=== PATIENT | female | born 1980 | race Caucasian/White ===

== ENCOUNTER 2017-08-04 03:28 | Emergency (ER) | payer MEDICAID ==
--- NOTE | 2017-08-04 03:31 | ER Report ---
History and Physical Time Seen By MD: 03:30 (KEIRY TORRES DO) Time Seen By MD: 06:55 (KAYCEE DAMON DO) HPI/ROS CHIEF COMPLAINT: Left flank pain HISTORY OF PRESENT ILLNESS: 36-year-old female presents ambulatory to the ER complaining of urgency throughout the day and then 3 hours of severe left flank pain with severe nausea. Patient states she has history of kidney stones, last one was 2 years ago. Patient notes no hematuria, except when she wipes. There' s staining on the tissue. She states she's not had menstrual periods 3 years. She has an IUD. REVIEW OF SYSTEMS: Respiratory: No cough, no dyspnea. Cardiovascular: No chest pain, no palpitations. Gastrointestinal: As above Musculoskeletal: As above (KEIRY TORRES DO) Allergies: Coded Allergies: No Known Drug Allergies (Unverified , 08/04/17) Home Meds Active Scripts Oxycodone Hcl/Acetaminophen (PERCOCET 5-325 MG TABLET) 1 Each Tablet, 1 EACH PO Q4H Y for PAIN, #12 TAB 0 Refills Prov:KAYCEE DAMON DO 08/04/17 Ondansetron (ZOFRAN ODT) 4 Mg Tab.rapdis, 4 MG PO Q6H Y for NAUSEA/VOMITING, # 20 TAB.JEN 0 Refills Prov:KAYCEE DAMON DO 08/04/17 Reviewed Nurses Notes: Yes Old Medical Records Reviewed: Yes (KEIRY TORRES DO) Constitutional Vital Sign - Last 24 Hours 08/04/17 08/04/17 08/04/17 08/04/17 03:33 03:35 04:43 04:48 Temp 97.6 Pulse 95 97 94 Resp 20 B/P (MAP) 139/100 139/100 (113) Pulse Ox 95 95 93 O2 Delivery Room Air 08/04/17 08/04/17 08/04/17 08/04/17 05:00 05:03 05:18 05:30 Pulse 95 90 B/P (MAP) 120/79 (93) 115/66 (82) Pulse Ox 93 96 08/04/17 08/04/17 08/04/17 08/04/17 05:33 05:38 05:53 06:00 Pulse 84 87 82 B/P (MAP) 103/69 (80) Pulse Ox 92 88 85 08/04/17 08/04/17 08/04/17 06:08 06:23 06:30 Pulse 71 75 B/P (MAP) 98/72 (81) Pulse Ox 95 87 (KAYCEE DAMON DO) Physical Exam General Appearance: The patient is alert, has no immediate need for airway protection and no current signs of toxicity. HEENT: Pupils equal and round no injection. Oropharynx no redness or exudate, mucous members are moist Respiratory: Chest is non tender, lungs are clear to auscultation. Cardiac: regular rate and rhythm Gastrointestinal: Abdomen is soft and non tender, no masses, bowel sounds normal. Mild left CVA tenderness Musculoskeletal: Neck: Neck is supple and non tender. Extremities have full range of motion and are non tender. Skin: No rashes or lesions. DIFFERENTIAL DIAGNOSIS: After history and physical exam differential diagnosis was considered for flank pain including but not limited to musculoskeletal causes, kidney stone, pyelonephritis, shingles, and intra-abdominal causes such as diverticulitis and appendicitis. (KEIRY TORRES DO) Medical Decision Making Data Points Result Diagram: 08/04/17 0546 08/04/17 0546 Laboratory Hematology Test 08/04/17 03:32 08/04/17 05:46 Urine Color Yellow Urine Clarity Slightly-cloudy Urine pH 5.0 pH (4.8-9.5) Urine Specific [place] 1.030 Urine Protein Negative mg/dL (NEGATIVE) Urine Glucose (UA) Negative mg/dL (NEGATIVE) Urine Ketones Negative mg/dL (NEGATIVE) Urine Blood Large (NEGATIVE) Urine Nitrite Negative (NEGATIVE) Urine Bilirubin Negative (NEGATIVE) Urine Urobilinogen 2.0 mg/dL (0.2-1.9) Urine Leukocyte Esterase Negative (NEGATIVE) Urine RBC 257 /HPF (0-2/HPF) Urine WBC 2 /HPF (0-5/HPF) Urine Squamous Epithelial Cells Many /LPF (</=FEW) Urine Transitional Epithelial Cells Few /LPF (NONE-FEW) Urine Bacteria Negative /HPF (NONE-FEW) Urine Mucus Few /HPF (NONE-FEW) Red Blood Count 4.31 M/uL (4.17-5.56) Mean Corpuscular Volume 90.9 fL (80.0-96.0) Mean Corpuscular Hemoglobin 31.6 pg (26.0-33.0) Mean Corpuscular Hemoglobin Concent 34.8 g/dL (32.0-36.0) Red Cell Distribution Width 13.9 % (11.5-14.5) Mean Platelet Volume 8.0 fL (7.2-11.1) Neutrophils (%) (Auto) 53.7 % (39.4-72.5) Lymphocytes (%) (Auto) 37.6 % (17.6-49.6) Monocytes (%) (Auto) 6.5 % (4.1-12.4) Eosinophils (%) (Auto) 1.3 % (0.4-6.7) Basophils (%) (Auto) 0.9 % (0.3-1.4) Nucleated RBC Relative Count (auto) 0.0 /100WBC Neutrophils # (Auto) 4.9 K/uL (2.0-7.4) Lymphocytes # (Auto) 3.4 K/uL (1.3-3.6) Monocytes # (Auto) 0.6 K/uL (0.3-1.0) Eosinophils # (Auto) 0.1 K/uL (0.0-0.5) Basophils # (Auto) 0.1 K/uL (0.0-0.1) Nucleated RBC Absolute Count (auto) 0.00 K/uL Sodium Level 137 mmol/L (137-145) Potassium Level 3.7 mmol/L (3.5-5.0) Chloride Level 107 mmol/L (98-107) Carbon Dioxide Level 21 mmol/L (22-31) Blood Urea Nitrogen 14 mg/dl (7-18) Creatinine 0.60 mg/dl (0.52-1.04) Glomerular Filtration Rate Calc > 60.0 Random Glucose 93 mg/dl (75-110) Calcium Level 8.8 mg/dl (8.4-10.2) Total Bilirubin 0.3 mg/dl (0.2-1.3) Aspartate Amino Transf (AST/SGOT) 13 U/L (0-35) Alanine Aminotransferase (ALT/SGPT) 26 U/L (0-56) Alkaline Phosphatase 60 U/L (0-126) Total Protein 5.9 gm/dl (6.3-8.2) Albumin 3.4 g/dl (3.5-5.0) Amylase Level < 30 U/L (0-110) Lipase 78 U/L (23-300) Human Chorionic Gonadotropin, Qual Negative (NEGATIVE) Chemistry Test 08/04/17 03:32 08/04/17 05:46 Urine Color Yellow Urine Clarity Slightly-cloudy Urine pH 5.0 pH (4.8-9.5) Urine Specific [place] 1.030 Urine Protein Negative mg/dL (NEGATIVE) Urine Glucose (UA) Negative mg/dL (NEGATIVE) Urine Ketones Negative mg/dL (NEGATIVE) Urine Blood Large (NEGATIVE) Urine Nitrite Negative (NEGATIVE) Urine Bilirubin Negative (NEGATIVE) Urine Urobilinogen 2.0 mg/dL (0.2-1.9) Urine Leukocyte Esterase Negative (NEGATIVE) Urine RBC 257 /HPF (0-2/HPF) Urine WBC 2 /HPF (0-5/HPF) Urine Squamous Epithelial Cells Many /LPF (</=FEW) Urine Transitional Epithelial Cells Few /LPF (NONE-FEW) Urine Bacteria Negative /HPF (NONE-FEW) Urine Mucus Few /HPF (NONE-FEW) White Blood Count 9.2 k/uL (4.5-11.0) Red Blood Count 4.31 M/uL (4.17-5.56) Hemoglobin 13.6 g/dL (12.0-16.0) Hematocrit 39.2 % (34.0-47.0) Mean Corpuscular Volume 90.9 fL (80.0-96.0) Mean Corpuscular Hemoglobin 31.6 pg (26.0-33.0) Mean Corpuscular Hemoglobin Concent 34.8 g/dL (32.0-36.0) Red Cell Distribution Width 13.9 % (11.5-14.5) Platelet Count 255 K/uL (150-450) Mean Platelet Volume 8.0 fL (7.2-11.1) Neutrophils (%) (Auto) 53.7 % (39.4-72.5) Lymphocytes (%) (Auto) 37.6 % (17.6-49.6) Monocytes (%) (Auto) 6.5 % (4.1-12.4) Eosinophils (%) (Auto) 1.3 % (0.4-6.7) Basophils (%) (Auto) 0.9 % (0.3-1.4) Nucleated RBC Relative Count (auto) 0.0 /100WBC Neutrophils # (Auto) 4.9 K/uL (2.0-7.4) Lymphocytes # (Auto) 3.4 K/uL (1.3-3.6) Monocytes # (Auto) 0.6 K/uL (0.3-1.0) Eosinophils # (Auto) 0.1 K/uL (0.0-0.5) Basophils # (Auto) 0.1 K/uL (0.0-0.1) Nucleated RBC Absolute Count (auto) 0.00 K/uL Glomerular Filtration Rate Calc > 60.0 Calcium Level 8.8 mg/dl (8.4-10.2) Total Bilirubin 0.3 mg/dl (0.2-1.3) Aspartate Amino Transf (AST/SGOT) 13 U/L (0-35) Alanine Aminotransferase (ALT/SGPT) 26 U/L (0-56) Alkaline Phosphatase 60 U/L (0-126) Total Protein 5.9 gm/dl (6.3-8.2) Albumin 3.4 g/dl (3.5-5.0) Amylase Level < 30 U/L (0-110) Lipase 78 U/L (23-300) Human Chorionic Gonadotropin, Qual Negative (NEGATIVE) Urinalysis Test 08/04/17 03:32 Urine Color Yellow Urine Clarity Slightly-cloudy Urine pH 5.0 pH (4.8-9.5) Urine Specific [place] 1.030 Urine Protein Negative mg/dL (NEGATIVE) Urine Glucose (UA) Negative mg/dL (NEGATIVE) Urine Ketones Negative mg/dL (NEGATIVE) Urine Blood Large (NEGATIVE) Urine Nitrite Negative (NEGATIVE) Urine Bilirubin Negative (NEGATIVE) Urine Urobilinogen 2.0 mg/dL (0.2-1.9) Urine Leukocyte Esterase Negative (NEGATIVE) Urine RBC 257 /HPF (0-2/HPF) Urine WBC 2 /HPF (0-5/HPF) Urine Squamous Epithelial Cells Many /LPF (</=FEW) Urine Transitional Epithelial Cells Few /LPF (NONE-FEW) Urine Bacteria Negative /HPF (NONE-FEW) Urine Mucus Few /HPF (NONE-FEW) (KAYCEE DAMON DO) EKG/Imaging Imaging Ultrasound (KEIRY TORRES DO) Imaging Ultrasound showed no signs of hydronephrosis. Ureteral jets were emptying into bladder. (KAYCEE DAMON DO) ED Course/Re-evaluation Clinical Indication for ER IV: Hydration, IV Access Decision to Disposition Date: August 04, 2017 Decision to Disposition Time: 06:49 (KEIRY TORRES DO) ED Course I assumed care of patient 7:00. She was awaiting ultrasound for evaluation of suspected kidney stone with a history of prior nephrolithiasis. Ultrasound showed no signs of hydronephrosis. I gave the patient a dose of fentanyl for analgesia and a prescription for Percocet and Zofran for home antibiotic and analgesia. Patient agreed to follow up with PCP in one week. Decision to Disposition Date: August 04, 2017 Decision to Disposition Time: 07:18 (KAYCEE DAMON DO) Depart Departure Latest Vital Signs Vital Signs Date Time Temp Pulse Resp B/P (MAP) Pulse Ox O2 Delivery O2 Flow Rate FiO2 08/04/17 06:30 98/72 (81) 08/04/17 06:23 75 87 08/04/17 03:33 97.6 20 Room Air (KAYCEE DAMON DO) Impression: Primary Impression: Kidney stone Additional Impression: Renal colic on left side Condition: Improved Disposition: HOME OR SELF-CARE New Scripts Oxycodone Hcl/Acetaminophen (PERCOCET 5-325 MG TABLET) 1 Each Tablet 1 EACH PO Q4H Y for PAIN, #12 TAB 0 Refills Prov: KAYCEE DAMON DO 08/04/17 Ondansetron (ZOFRAN ODT) 4 Mg Tab.rapdis 4 MG PO Q6H Y for NAUSEA/VOMITING, #20 TAB.JEN 0 Refills Prov: KAYCEE DAMON DO 08/04/17 Patient Instructions: Kidney Stones (ED) Additional Instructions: You may continue to take ibuprofen for pain control every 6-8 hours. You were prescribed percocet for pain control. You may take one tab every 8 hours as needed for pain control. You may take zofran every 6-8 hours as needed for nausea/vomiting. Problem Qualifiers KEIRY TORRES DO August 04, 2017 03:31 KAYCEE DAMON DO August 04, 2017 06:56
[2017-08-04] MEDS ORDERED: NS(*) 0.9% 1000 ML BAG 1,000 ML IV ONE (03:35)
[2017-08-04] MEDS ORDERED: ONDANSETRON 4 MG/2 ML VIAL IVP ONE (03:35)
[2017-08-04] MEDS ORDERED: KETOROLAC 30 MG/ML VIAL IVP ONE (03:40)
[2017-08-04] MEDS ORDERED: HYDROmorphone* 1 MG/ML 1 MG/ML ML IVP ONE ×2 (03:40→05:15)
[2017-08-04 05:51] LABS: PLATELET COUNT, AUTOMATED 255 K/uL (150-450)
[2017-08-04] MEDS ORDERED: METOCLOPRAMIDE 10 MG/2 ML SDV IVP ONE (07:00)
[2017-08-04] MEDS ORDERED: fentaNYL 50 MCG TDSY TD ONE (07:05)
[2017-08-04] MEDS ORDERED: fentaNYL CITR 100 MCG/2 ML AMP IVP ONE (07:10)
[2017-08-04] MEDS ORDERED: ONDA4TAB PO (07:13)
[2017-08-04] MEDS ORDERED: OXYC-865 PO (07:13)
[2017-08-04 07:23] VITALS: BP 125/94
--- NOTE | 2017-08-04 07:38 | RADIOLOGY IMAGING REPORT ---
FACILITY: [facility] [place] PATIENT NAME: Evette Guidry : 1980 MR: [id number] V: [id number] EXAM DATE: ORDERING PHYSICIAN: KEIRY TORRES TECHNOLOGIST: Location: [facility] [place] Patient: Evette Guidry : 1980 Visit/Account:[id number] Date of Sevice: 08/04/2017 KIDNEYS HISTORY: Left flank pain. History of renal stone. Refusing CT. COMPARISON: None. FINDINGS: Kidneys Right: Is 11.7 x 5.8 x 6.0 cm. Normal parenchymal thickness and echogenicity. No hydronephrosis. Ther e is a 5 mm echogenic structure in the right central kidney without shadowing. This may represent ech ogenic renal sinus fat, as a renal calculus of this size would be expected to shadow. No perinephric fluid collection. Left: 12.7 x 6.1 x 5.1 cm. Normal parenchymal thickness and echogenicity. No hydronephrosis or visibl e shadowing calculus. Bladder: Normal. Prevoid bladder volume is 116 mL. Post void bladder volume is less than 1 mL. Both u reteral jets were identified. Abdomina aorta and IVC: Patent by Doppler ultrasound. IMPRESSION: 1. No hydronephrosis or visible shadowing calculus. 2. Normal bladder. Report Dictated By: Sharmila Damon at 08/04/2017 7:33 AM Report E-Signed By: Sharmila Damon at 08/04/2017 7:36 AM WSN:[id number]
== END 2017-08-04 07:24 | disposition home or self-care (01) ==
LOC: ER 03:35
DX: N20.0 Calculus of kidney (principal); Z87.442 Personal history of urinary calculi; N23 Unspecified renal colic
CPT/HCPCS: 76705; 81001; 82150; 83690; 84703; 85025; 96361; 96374; 96375; 96376; 99284; J1170; J1885; J2405; J2765; J3010; J7030; 82040; 82247; 82310; 82374; 82435; 82565; 82947; 84075; 84132; 84155; 84295; 84450; 84460; 84520